=== PATIENT | male | born 1965 | race Caucasian/White ===

== ENCOUNTER 2020-06-19 01:09 | Emergency (ER) | payer SELFPAY ==
[~2020-06-19] VITALS: Ht 177.8 cm; Wt 81.6 kg
[2020-06-19 01:16] VITALS: BP 155/109
== END 2020-06-19 02:57 | disposition home or self-care (01) ==
LOC: ER 01:13
DX: S02.2XXA Fracture of nasal bones, initial encounter for closed fracture (principal); M25.511 Pain in right shoulder; F10.229 Alcohol dependence with intoxication, unspecified; G89.29 Other chronic pain; X58.XXXA Exposure to other specified factors, initial encounter; Y93.89 Activity, other specified; Y92.89 Other specified places as the place of occurrence of the external cause; Y99.8 Other external cause status
CPT/HCPCS: 70160; 73030